=== PATIENT | male | born 1970 | race Caucasian/White ===

== ENCOUNTER 2016-12-15 13:41 | Emergency (ER) | payer OTHER ==
[2016-12-15 14:04] VITALS: BP 109/75; PULSE 73; RESP 18; TEMP 97.5
[2016-12-15] MEDS ORDERED: ONDANSETRON 4 MG ODT STARTER PACK 2 TAB BTL PO STA (15:24)
--- NOTE | 2016-12-15 15:29 | ED ---
General Adult HPI - General Chief complaint: Nausea/Vomiting/Diarrhea Stated complaint: Nausea/Vomiting Time Seen by Provider: 12/15/16 15:12 Source: patient, RN notes reviewed Mode of arrival: ambulatory Limitations: no limitations - History of Present Illness Initial comments: Patient 46-year-old male who presents emergency room today with a chief complaint of symptoms of nausea vomiting with cough congestion. Patient does admit that cough congestion started approximately a week ago. He does admit to sinus ALLERGIES. He states that he had increased symptoms after he cut the grass. At that he's had a sinus headache. He does admit to increased rhinorrhea. Does admit to a mild cough with some sputum production at times. He states his symptoms are consistent with his sinuses. Patient admits that he' s also had nausea vomiting over the last 3-4 days. Patient denies any abdominal pain. He denies any other complaints or associated symptoms. Denies any signs of blood in the emesis. Patient denies any recent fever, chills, shortness of breath, chest pain, back pain, numbness or tingling, dysuria or hematuria, constipation or diarrhea, headaches or visual changes, or any other complaints. - Related Data Previous Rx's Medication Instructions Recorded Amoxicillin/Potassium Clav 1 each PO Q12HR #20 tab 12/15/16 [Augmentin 875-125 Tablet] Fluticasone Propionate [Flonase 1 - 2 spray EA NOSTRIL DAILY 5 Days 12/15/16 Allergy Relief] Ondansetron Odt [Zofran ODT] 4 mg PO Q8HR PRN #20 tab 12/15/16 Allergies Allergy/AdvReac Type Severity Reaction Status Date / Time No Known Allergies Allergy Verified 12/15/16 14:03 Review of Systems ROS Statement: Those systems with pertinent positive or pertinent negative responses have been documented in the HPI. ROS Other: All systems not noted in ROS Statement are negative. Past Medical History Past Medical History: No Reported History History of Any Multi-Drug Resistant Organisms: None Reported Past Surgical History: Orthopedic Surgery Additional Past Surgical History / Comment(s): knee surgery Past Psychological History: No Psychological Hx Reported Smoking Status: Current every day smoker Past Alcohol Use History: None Reported Past Drug Use History: None Reported General Exam - General Exam Comments Initial Comments: General: The patient is awake and alert, in no distress, and does not appear acutely ill. Eye: Pupils are equal, round and reactive to light, extra-ocular movements are intact. No nystagmus. There is normal conjunctiva bilaterally. No signs of icterus. Ears, nose, mouth and throat: There are moist mucous membranes and no oral lesions. patient does have tenderness over the frontal and maxillary sinuses. Neck: The neck is supple, there is no tenderness or JVD. Cardiovascular: There is a regular rate and rhythm. No murmur, rub or gallop is appreciated. Respiratory: Lungs are clear to auscultation, respirations are non-labored, breath sounds are equal. No wheezes, stridor, rales, or rhonchi. Gastrointestinal: Soft, non-distended, non-tender abdomen without masses or organomegaly noted. There is no rebound or guarding present. No CVA tenderness. Bowel sounds are unremarkable. Musculoskeletal: Normal ROM, no tenderness. Strength 5/5. Sensation intact. Pulses equal bilaterally 2+. Neurological: A&O x 3. CN II-XII intact, There are no obvious motor or sensory deficits. Coordination appears grossly intact. Speech is normal. Skin: Skin is warm and dry and no rashes or lesions are noted. Psychiatric: Cooperative, appropriate mood & affect, normal judgment. Limitations: no limitations Course Vital Signs 12/15/16 14:00 Temperature 97.5 F L Pulse Rate 73 Respiratory 18 Rate Blood Pressure 109/75 O2 Sat by Pulse 98 Oximetry Medical Decision Making - Medical Decision Making patient does have tenderness over sinuses. Evidence for sinus infection. Was discussed most likely viral. We will provide an antibiotic ICUs if symptoms are not improved over the next 2 days. Patient was started on Flonase. He takes Zyrtec. Patient advised that there is a chance that the sinus drainage may be causing his nausea vomiting as 7 is soft nontender. Patient is advised return if there is any increase or worsen his symptoms. Given Zofran for nausea and vomiting. Denies increase oral fluids. Disposition Clinical Impression: Acute sinusitis, Nausea & vomiting Disposition: HOME SELF-CARE Condition: Good Instructions: Sinusitis (ED) Additional Instructions: Please use medication as discussed. Please follow-up with family doctor in the next 2 days of symptoms have not improved. Please return to emergency room if the symptoms increase or worsen or for any other concerns. Prescriptions: Amoxicillin/Potassium Clav [Augmentin 875-125 Tablet] 1 each PO Q12HR #20 tab Fluticasone Propionate [Flonase Allergy Relief] 1 - 2 spray EA NOSTRIL DAILY 5 Days Ondansetron Odt [Zofran ODT] 4 mg PO Q8HR PRN #20 tab PRN Reason: Nausea Referrals: Henrry Patel MD [Primary Care Provider] - 1-2 days Time of Disposition: 15:28
== END 2016-12-15 15:52 | disposition home or self-care (01) ==
LOC: EC 13:41
DX: J01.90 Acute sinusitis, unspecified (principal); R11.2 Nausea with vomiting, unspecified; F17.200 Nicotine dependence, unspecified, uncomplicated
CPT/HCPCS: 99283; S0119

== ENCOUNTER 2017-03-15 10:02 | Emergency (ER) | payer OTHER ==
[2017-03-15 10:08] VITALS: RESP 18
--- NOTE | 2017-03-15 10:26 | ED ---
General Adult HPI - General Chief complaint: Extremity Injury, Lower Stated complaint: NUMBLESS LOWER LEGS Time Seen by Provider: 03/15/17 10:16 Source: patient Mode of arrival: wheelchair Limitations: no limitations - History of Present Illness Initial comments: This is a 46-year-old male with a history of multiple knee surgeries who presents in the department for bilateral leg tingling and numbness. He states that it started 3 weeks ago. He states is located on the lateral aspect of bilateral legs below the knee and extends down into his foot. He states that he has no weakness but does feel like he has trouble walking because he feels like his feet are numb. He denies any injuries. No pain in his knees or back. No loss of bowel or bladder function. He denies any saddle anesthesia. Today it seemed like he was getting worse or decided come emergency department for evaluation. - Related Data Previous Rx's Medication Instructions Recorded Gabapentin [Neurontin] 100 mg PO TID #60 cap 03/15/17 Allergies Allergy/AdvReac Type Severity Reaction Status Date / Time No Known Allergies Allergy Verified 03/15/17 10:08 Review of Systems ROS Statement: Those systems with pertinent positive or pertinent negative responses have been documented in the HPI. ROS Other: All systems not noted in ROS Statement are negative. Past Medical History Past Medical History: No Reported History Additional Past Medical History / Comment(s): color blind History of Any Multi-Drug Resistant Organisms: None Reported Past Surgical History: Appendectomy, Orthopedic Surgery Additional Past Surgical History / Comment(s): knee surgery x4 Past Psychological History: No Psychological Hx Reported Smoking Status: Current every day smoker Past Alcohol Use History: Occasional Past Drug Use History: None Reported General Exam - General Exam Comments Initial Comments: Constitutional: Awake alert Appears comfortable Head: Normocephalic atraumatic Eyes: no conjunctival injection No scleral icterus EOMI Neck: No JVD Supple Heart: Regular rate rhythm normal S1-S2 no murmurs Lungs: Clear to auscultation bilaterally No wheezing No rales Abdomen: Soft nondistended nontender Extremities: Non edematous DP pulses intact Radial pulses intact, patient reports decreased sensation along the lateral aspect of bilateral lower extremities below the knees. He reports intact sensation on the medial aspect. He's had 5 out of 5 strength with dorsiflexion and plantar flexion bilaterally. He's had 2 out of 4 patellar reflexes bilaterally. He has no lumbar spine tenderness. No other complaints. Neuro: A&Ox3 No focal neurologic deficits Psych: Appropriate mood and affect Limitations: no limitations Course Vital Signs 03/15/17 03/15/17 10:04 11:36 Temperature 96.3 F L 97.2 F L Pulse Rate 71 80 Respiratory 18 18 Rate Blood Pressure 119/74 124/70 O2 Sat by Pulse 98 99 Oximetry Medical Decision Making - Medical Decision Making This is a 46-year-old male who presents emergency department for bilateral lower extremity numbness and tingling. Patient otherwise had a completely neurologically intact exam. The patient did admit to me that he has had this intermittently for quite some time usually in the morning when he gets up but it typically goes away. I feel that with the patient's x-ray showing degenerative changes at L5-S1 that this is likely the cause of his symptoms. I told him that he needs a full neurologic workup. Given Dr. Cook to follow- up with. I also given gabapentin that he can use for the neuropathy. He can otherwise use Motrin or Tylenol for pain. Can return emergency Department if he develops weakness or any other worsening or changing symptoms. - Lab Data Result diagrams: 03/15/17 10:30 03/15/17 10:30 Lab Results 03/15/17 03/15/17 Range/Units 10:30 10:30 WBC 5.5 (3.8-10.6) k/uL RBC 4.94 (4.30-5.90) m/uL Hgb 16.1 (13.0-17.5) gm/dL Hct 46.4 (39.0-53.0) % MCV 93.9 (80.0-100.0) fL MCH 32.5 (25.0-35.0) pg MCHC 34.6 (31.0-37.0) g/dL RDW 13.3 (11.5-15.5) % Plt Count 177 (150-450) k/uL Neutrophils % 50 % Lymphocytes % 35 % Monocytes % 8 % Eosinophils % 3 % Basophils % 1 % Neutrophils # 2.8 (1.3-7.7) k/uL Lymphocytes # 1.9 (1.0-4.8) k/uL Monocytes # 0.4 (0-1.0) k/uL Eosinophils # 0.2 (0-0.7) k/uL Basophils # 0.1 (0-0.2) k/uL Sodium 140 (137-145) mmol/L Potassium 4.4 (3.5-5.1) mmol/L Chloride 105 (98-107) mmol/L Carbon Dioxide 25 (22-30) mmol/L Anion Gap 10 mmol/L BUN 16 (9-20) mg/dL Creatinine 1.06 (0.66-1.25) mg/dL Est GFR (MDRD) Af Amer >60 (>60 ml/min/1.73 sqM) Est GFR (MDRD) Non-Af >60 (>60 ml/min/1.73 sqM) Glucose 89 (74-99) mg/dL Calcium 9.8 (8.4-10.2) mg/dL Total Bilirubin 0.8 (0.2-1.3) mg/dL AST 22 (17-59) U/L ALT 33 (21-72) U/L Alkaline Phosphatase 63 (38-126) U/L Total Protein 7.7 (6.3-8.2) g/dL Albumin 4.9 (3.5-5.0) g/dL Disposition Clinical Impression: Neuropathy Disposition: HOME SELF-CARE Condition: Stable Instructions: Peripheral Neuropathy (ED) Prescriptions: Gabapentin [Neurontin] 100 mg PO TID #60 cap Referrals: Henrry Patel MD [Primary Care Provider] - 1-2 days Angela Cook MD [STAFF PHYSICIAN] - 1-2 days
[2017-03-15 10:41] LABS: Basophils # (A) 0.1 k/uL (0-0.2); Basophils % (A) 1 %; CH 33.7; Eosinophils # (A) 0.2 k/uL (0-0.7); Eosinophils % (A) 3 %; HCT 46.4 % (39.0-53.0); HDW 2.35; HGB 16.1 gm/dL (13.0-17.5); Luc # (Auto) 0.18; Luc % (Auto) 3; Lymphocytes # (A) 1.9 k/uL (1.0-4.8); Lymphocytes % (A) 35 %; MCH 32.5 pg (25.0-35.0); MCHC 34.6 g/dL (31.0-37.0); MCV 93.9 fL (80.0-100.0); Mean Platelet Volume 7.5; Monocytes # (A) 0.4 k/uL (0-1.0); Monocytes % (A) 8 %; Neutrophils # (A) 2.8 k/uL (1.3-7.7); Neutrophils % (A) 50 %; RBC 4.94 m/uL (4.30-5.90); RDW 13.3 % (11.5-15.5); WBC 5.5 k/uL (3.8-10.6); WBC (Perox) 5.19
[2017-03-15 10:58] LABS: ALT 33 U/L (21-72); AST 22 U/L (17-59); Alkaline Phosphatase 63 U/L (38-126); Anion Gap 10 mmol/L; Blood Urea Nitrogen 16 mg/dL (9-20); Calcium 9.8 mg/dL (8.4-10.2); Carbon Dioxide 25 mmol/L (22-30); Chloride 105 mmol/L (98-107); Glucose 89 mg/dL (74-99); Non-African American GFR(MDRD) >60 (>60 ml/min/1.73 sqM); Potassium 4.4 mmol/L (3.5-5.1); Sodium 140 mmol/L (137-145); Total Bilirubin 0.8 mg/dL (0.2-1.3); Total Protein 7.7 g/dL (6.3-8.2)
--- NOTE | 2017-03-15 11:14 | XR ---
Lumbar spine HISTORY: Numbness bilateral lower extremities, pain, neuropathy 3 views of the lumbar spine Correlation to prior exam 09/26/2008 There is no significant interval change. Lumbar vertebral bodies show stable height, alignment, and b one mineralization. Disc spaces are stable, disc height loss present at L5-S1. There is mild multilev el spondylosis. Vascular calcifications are present within the aorta. IMPRESSION: Mild degenerative disc changes, lumbar MRI may be of benefit.
--- NOTE | 2017-03-15 11:16 | XR ---
Bilateral knees HISTORY: Pain and numbness bilateral lower extremities, neuropathy 3 views of each knee are submitted. No comparisons There is cortical thickening, areas of cystic lucency involving the anterior aspect of the proximal l eft tibia which may be due to prior surgeries. Bone mineralization is within normal limits, alignment is maintained. Joint spaces are symmetric. No evident joint effusions. IMPRESSION: Postop changes left knee.
[2017-03-15 11:37] VITALS: BP 124/70; PULSE 80; TEMP 97.2
== END 2017-03-15 11:43 | disposition home or self-care (01) ==
LOC: EC 10:02
DX: G62.9 Polyneuropathy, unspecified (principal); F17.200 Nicotine dependence, unspecified, uncomplicated
CPT/HCPCS: 36415; 72100; 80053; 85025; 99283

== ENCOUNTER → 2017-04-10 | Outpatient (CLI) | payer OTHER ==
--- NOTE | 2017-04-10 10:22 | MR ---
EXAMINATION TYPE: MR lumbar spine wo con DATE OF EXAM: 04/10/2017 COMPARISON: NONE HISTORY: intervertebral disc degeneration lsp, low back pain x 3 mths TECHNIQUE: T1 and T2 axial and sagittal images of the lumbar spine are submitted. FINDINGS: There is no abnormal signal seen within the visualized spinal cord or paraspinal soft tissu es. Nerve roots sleeve cyst are seen at multiple levels. At L1-2 there is no degenerative disc disease, disc herniation, canal stenosis, or foraminal encroach ment. At L2-3 there is no degenerative disc disease, disc herniation, canal stenosis, or foraminal encroach ment. At L3-4 there is no degenerative disc disease, disc herniation, canal stenosis, or foraminal encroach ment. At L4-5 there is there is loss of disc space and signal. There is annular tear and broad-based centra l disc protrusion with mild effacement of thecal sac. Hypertrophic change of the facets are noted the re is mild bilateral foraminal encroachment. Borderline canal stenosis. At L5-S1 there is no degenerative disc disease, disc herniation, canal stenosis, or foraminal encroac hment. IMPRESSION: 1. At L4-5 there is there is loss of disc space and signal. There is annular tear and broad-based elda tral disc protrusion with mild effacement of thecal sac. Hypertrophic change of the facets are noted there is mild bilateral foraminal encroachment. Borderline canal stenosis. 2. Correlate for cholelithiasis.
== END | disposition home or self-care (01) ==
LOC: RADMRIMAIN 08:37
PROVIDERS: ATTEND Family Medicine
DX: M48.061 Spinal stenosis, lumbar region without neurogenic claudication (principal); M51.26 Other intervertebral disc displacement, lumbar region; M53.86 Other specified dorsopathies, lumbar region
CPT/HCPCS: 72148

== ENCOUNTER 2018-12-17 13:35 | Emergency (ER) | payer OTHER ==
[2018-12-17 15:16] VITALS: TEMP 98.3
[2018-12-17 15:35] LABS: Basophils # (A) 0.1 k/uL (0-0.2); Basophils % (A) 1 %; Eosinophils # (A) 0.2 k/uL (0-0.7); Eosinophils % (A) 3 %; HCT 43.4 % (39.0-53.0); HGB 14.7 gm/dL (13.0-17.5); Lymphocytes # (A) 1.8 k/uL (1.0-4.8); Lymphocytes % (A) 28 %; MCH 31.3 pg (25.0-35.0); MCHC 33.9 g/dL (31.0-37.0); MCV 92.3 fL (80.0-100.0); Mean Platelet Volume 7.2; Monocytes # (A) 0.6 k/uL (0-1.0); Monocytes % (A) 9 %; Neutrophils # (A) 3.8 k/uL (1.3-7.7); Neutrophils % (A) 57 %; Platelet Count 197 k/uL (150-450); RDW 14.8 % (11.5-15.5); WBC 6.6 k/uL (3.8-10.6)
[2018-12-17 15:42] LABS: ALT 17 U/L (21-72); AST 19 U/L (17-59); African American GFR (CKD) >90 (>60 ml/min/1.73 sqM); Albumin 4.4 g/dL (3.5-5.0); Alkaline Phosphatase 60 U/L (38-126); Anion Gap 7 mmol/L; Blood Urea Nitrogen 14 mg/dL (9-20); Calcium 9.7 mg/dL (8.4-10.2); Carbon Dioxide 29 mmol/L (22-30); Chloride 105 mmol/L (98-107); Glucose 82 mg/dL (74-99); Sodium 141 mmol/L (137-145); Total Bilirubin 0.4 mg/dL (0.2-1.3); Total Protein 6.9 g/dL (6.3-8.2)
--- NOTE | 2018-12-17 17:39 | ED ---
General Adult HPI - General Chief complaint: Recheck/Abnormal Lab/Rx Stated complaint: Arthritis in hands Time Seen by Provider: 12/17/18 17:14 Source: patient Mode of arrival: ambulatory Limitations: no limitations - History of Present Illness Initial comments: Patient is a 48-year-old male presenting to the emergency Department with complaints of bilateral hand pain. Patient states he has been having this pain for years but the last few weeks is worse. Patient admits to having other joint pain but his hands are the worst. Patient is a semi-route delivery service driver. He denies any other injuries or trauma to his hands or wrists or arms. Patient is right-handed. Patient describes the pain as achy. He has tried Aleve for the pain which does not help. He denies seeing his PCP for years. - Related Data Home Medications Medication Instructions Recorded Confirmed Naproxen Sodium [Aleve] 440 mg PO Q8H 12/17/18 12/17/18 Allergies Allergy/AdvReac Type Severity Reaction Status Date / Time No Known Allergies Allergy Verified 12/17/18 17:40 Review of Systems ROS Statement: Those systems with pertinent positive or pertinent negative responses have been documented in the HPI. ROS Other: All systems not noted in ROS Statement are negative. Past Medical History Past Medical History: No Reported History Additional Past Medical History / Comment(s): color blind History of Any Multi-Drug Resistant Organisms: None Reported Past Surgical History: Appendectomy, Orthopedic Surgery Additional Past Surgical History / Comment(s): knee surgery x4 Past Psychological History: No Psychological Hx Reported Smoking Status: Current every day smoker Past Alcohol Use History: Occasional Past Drug Use History: None Reported General Exam - General Exam Comments Initial Comments: GENERAL: Well-appearing, well-nourished and in no acute distress. HEAD: Atraumatic, normocephalic. EYES: Pupils equal round and reactive to light, extraocular movements intact, sclera anicteric, conjunctiva are normal. ENT: TMs normal, nares patent, oropharynx clear without exudates. Moist mucous membranes. NECK: Normal range of motion, supple without lymphadenopathy or JVD. LUNGS: Breath sounds clear to auscultation bilaterally and equal. No wheezes rales or rhonchi. HEART: Regular rate and rhythm without murmurs, rubs or gallops. ABDOMEN: Soft, nontender, normoactive bowel sounds. No guarding, no rebound. No masses appreciated. : Deferred EXTREMITIES: Normal range of motion, no pitting or edema. No clubbing or cyanosis. Mild pain with palpitation of bilateral hands, joints. No erythema, swelling. NEUROLOGICAL: Cranial nerves II through XII grossly intact. Normal speech, normal gait. PSYCH: Normal mood, normal affect. SKIN: Warm, Dry, normal turgor, no rashes or lesions noted. Limitations: no limitations Course Vital Signs 12/17/18 12/17/18 15:12 18:03 Temperature 98.3 F Pulse Rate 83 64 Respiratory 18 16 Rate Blood Pressure 114/75 115/74 O2 Sat by Pulse 97 97 Oximetry Medical Decision Making - Medical Decision Making Patient is a 48-year-old male complaining of bilateral hand pains. Patient has been having this pain for years. There is no acute injury or trauma. Most likely arthritis. Patient was counseled on NSAID use. Patient was discharged home and will follow up with PCP. - Lab Data Result diagrams: 12/17/18 15:29 12/17/18 15:29 Lab Results 12/17/18 12/17/18 Range/Units 15:29 15:29 WBC 6.6 (3.8-10.6) k/uL RBC 4.70 (4.30-5.90) m/uL Hgb 14.7 (13.0-17.5) gm/dL Hct 43.4 (39.0-53.0) % MCV 92.3 (80.0-100.0) fL MCH 31.3 (25.0-35.0) pg MCHC 33.9 (31.0-37.0) g/dL RDW 14.8 (11.5-15.5) % Plt Count 197 (150-450) k/uL Neutrophils % 57 % Lymphocytes % 28 % Monocytes % 9 % Eosinophils % 3 % Basophils % 1 % Neutrophils # 3.8 (1.3-7.7) k/uL Lymphocytes # 1.8 (1.0-4.8) k/uL Monocytes # 0.6 (0-1.0) k/uL Eosinophils # 0.2 (0-0.7) k/uL Basophils # 0.1 (0-0.2) k/uL Sodium 141 (137-145) mmol/L Potassium 4.0 (3.5-5.1) mmol/L Chloride 105 (98-107) mmol/L Carbon Dioxide 29 (22-30) mmol/L Anion Gap 7 mmol/L BUN 14 (9-20) mg/dL Creatinine 1.10 (0.66-1.25) mg/dL Est GFR (CKD-EPI)AfAm >90 (>60 ml/min/1.73 sqM) Est GFR (CKD-EPI)NonAf 79 (>60 ml/min/1.73 sqM) Glucose 82 (74-99) mg/dL Calcium 9.7 (8.4-10.2) mg/dL Total Bilirubin 0.4 (0.2-1.3) mg/dL AST 19 (17-59) U/L ALT 17 L (21-72) U/L Alkaline Phosphatase 60 (38-126) U/L Total Protein 6.9 (6.3-8.2) g/dL Albumin 4.4 (3.5-5.0) g/dL Disposition Clinical Impression: Arthritis of hand, left, Arthritis of right hand Disposition: HOME SELF-CARE Condition: Stable Instructions (If sedation given, give patient instructions): Arthritis (ED) Additional Instructions: Please return to the Emergency Department if symptoms worsen or any other concerns. Follow-up with PCP for further management of arthritis. Is patient prescribed a controlled substance at d/c from ED?: No Referrals: Henrry Patel MD [Primary Care Provider] - 1-2 days
[2018-12-17 18:04] VITALS: BP 115/74; PULSE 64; RESP 16
== END 2018-12-17 18:03 | disposition home or self-care (01) ==
LOC: EC 13:35
DX: M19.041 Primary osteoarthritis, right hand (principal); M19.042 Primary osteoarthritis, left hand; H53.50 Unspecified color vision deficiencies; F17.200 Nicotine dependence, unspecified, uncomplicated; Z90.49 Acquired absence of other specified parts of digestive tract; Z98.890 Other specified postprocedural states; Z79.1 Long term (current) use of non-steroidal anti-inflammatories (NSAID)
CPT/HCPCS: 36415; 80053; 85025; 99283

== ENCOUNTER 2019-04-01 16:52 | Emergency (ER) | payer OTHER ==
[2019-04-01 17:19] VITALS: BP 119/74; PULSE 64; RESP 18; TEMP 97.9
[2019-04-01] MEDS ORDERED: DEXAMETHASONE 4 MG TAB PO STA (17:25)
--- NOTE | 2019-04-01 17:26 | ED ---
ENT HPI - General Chief complaint: ENT Stated complaint: throat & ear pain Time Seen by Provider: 04/01/19 17:20 Source: patient Mode of arrival: ambulatory Limitations: no limitations - History of Present Illness Initial comments: 48-year-old male with no pertinent past medical history presenting for ear pain of the right ear, sore throat x 1 day. Patient states that he has had pain in his right ear and sore throat he states other people's home has similar symptoms. Patient denies any recent travel. Patient denies any fevers or flulike symptoms. Patient denies any headache or neck stiffness. Patient denies any vomiting diarrhea. Patient denies abdominal pain. Patent denies difficulty breathing or swallowing drooling.Remaining review system negative. - Related Data Home Medications Medication Instructions Recorded Confirmed Naproxen Sodium [Aleve] 440 mg PO Q8H 12/17/18 12/17/18 Allergies Allergy/AdvReac Type Severity Reaction Status Date / Time No Known Allergies Allergy Verified 04/01/19 17:19 Review of Systems ROS Statement: Those systems with pertinent positive or pertinent negative responses have been documented in the HPI. ROS Other: All systems not noted in ROS Statement are negative. Past Medical History Past Medical History: No Reported History Additional Past Medical History / Comment(s): color blind History of Any Multi-Drug Resistant Organisms: None Reported Past Surgical History: Appendectomy, Orthopedic Surgery Additional Past Surgical History / Comment(s): knee surgery x4 Past Psychological History: No Psychological Hx Reported Smoking Status: Current every day smoker Past Alcohol Use History: Occasional Past Drug Use History: None Reported General Exam - General Exam Comments Initial Comments: General: The patient is awake and alert, in no distress, and does not appear acutely ill. Eye: +3 mm pupils are equal, round and reactive to light, extra-ocular movements are intact. No nystagmus. There is normal conjunctiva bilaterally. No signs of icterus. No photophobia Ears, nose, mouth and throat: There are moist mucous membranes and no oral lesions. Oropharynx was mildly erythematous there is no tonsillar enlargement exudates or lesions. Uvula midline. Tympanic membranes are not erythematous or is no effusions bulging or retraction. Some mild scarring of the TM b/l. No tenderness to palpation of the mastoid. No anterior cervical lymphadenopathy. Rhinorrhea, clear and bilateral nares. No tripoding, no drooling. Neck: The neck is supple, there is no tenderness or JVD. No nuchal rigidity Cardiovascular: There is a regular rate and rhythm. No murmur, rub or gallop is appreciated. Respiratory: Lungs are clear to auscultation, respirations are non-labored, breath sounds are equal. No wheezes, stridor, rales, or rhonchi. No retractions or abdominal breathing. Gastrointestinal: Soft, non-distended, non-tender abdomen without masses or organomegaly noted. There is no rebound or guarding present. Bowel sounds are unremarkable. Musculoskeletal: Normal ROM, no tenderness. Strength 5/5. Sensation intact. Radial pulses equal bilaterally 2+. Neurological: A&O x 3. CN II-XII intact grossly, There are no obvious motor or sensory deficits. Coordination appears grossly intact. Speech appears normal, no muffling. Skin: Skin is warm and dry and no rashes or lesions are noted. No extremity edema Psychiatric: Cooperative Limitations: no limitations Course Vital Signs 04/01/19 04/01/19 17:17 18:08 Temperature 97.9 F 97.9 F Pulse Rate 64 64 Respiratory 18 18 Rate Blood Pressure 119/74 119/74 O2 Sat by Pulse 97 97 Oximetry Medical Decision Making - Medical Decision Making 48-year-old male presented for sore throat or pain. Positive sick contacts, . There is evidence of previous scarring of the tympanic membranes ever no acute infection. Patient does have mildly erythematous oropharynx. No exudates patient has a mild cough. Lungs cleared with no evidence of focal consolidations. No nuchal irritation signs patient appears well and nontoxic he is afebrile. This time feel patient also likely has a viral pharyngitis or upper respiratory infection knee is stable for discharge with outpatient primary care follow-up. Patient was given Decadron for symptomatically relief return parameters were discussed patient was discharged up and well Disposition Clinical Impression: Pharyngitis, Cough, URI (upper respiratory infection) Disposition: HOME SELF-CARE Condition: Good Instructions (If sedation given, give patient instructions): Pharyngitis (ED), Viral Syndrome (ED) Additional Instructions: Please use medication as discussed. Please follow-up with family doctor in the next 2 days. Please return to emergency room if the symptoms increase or worsen or for any other concerns. Is patient prescribed a controlled substance at d/c from ED?: No Referrals: None,Stated [Primary Care Provider] - 1-2 days Time of Disposition: 17:25
== END 2019-04-01 18:08 | disposition home or self-care (01) ==
LOC: EC 16:52
DX: J02.9 Acute pharyngitis, unspecified (principal); J06.9 Acute upper respiratory infection, unspecified; F17.200 Nicotine dependence, unspecified, uncomplicated; Z79.1 Long term (current) use of non-steroidal anti-inflammatories (NSAID)
CPT/HCPCS: 99282; J8540